=== PATIENT | female | born 1990 | race Hispanic/Latino ===

== ENCOUNTER 2022-07-11 15:54 | Emergency (ER) | payer OTHER, SELFPAY ==
[2022-07-11 16:05] VITALS: BP 104/48; PULSE 84; RESP 14; TEMP 37.1; O2SAT 99
--- NOTE | 2022-07-11 16:48 | ED.URI ---
HPI - URI/Sore Throat General Chief Complaint: Upper Respiratory Infection Stated Complaint: cough Time Seen by Provider: 07/11/22 16:12 Source: patient Mode of arrival: ambulatory Limitations: no limitations History of Present Illness HPI Narrative: Patient is a 32-year-old female that presents with cough and congestion since Friday. Patient denies taking anything other than Tylenol and Motrin due to recent diagnosis of tachycardia. Denies any fever, chills, ear pain, shortness of breath. Presents with daughter having similar symptoms. Related Data Home Medications Medication Instructions Recorded Confirmed aspirin 81 mg tablet,delayed 81 mg PO DAILY 07/11/22 07/11/22 release diltiazem HCl 120 mg 120 mg PO DAILY 07/11/22 07/11/22 capsule,extended release 24 hr, controlled (DILT-XR) etonogestrel 68 mg subdermal 1 implant subdermal ONCE 07/11/22 07/11/22 implant (Nexplanon) magnesium oxide 400 mg (241.3 mg 400 mg PO DAILY 07/11/22 07/11/22 magnesium) tablet metoprolol succinate 50 mg 50 mg PO DAILY 07/11/22 07/11/22 tablet,extended release 24 hr Allergies Allergy/AdvReac Type Severity Reaction Status Date / Time No Known Allergies Allergy Verified 07/11/22 16:02 Review of Systems Review of Systems: All systems reviewed & are unremarkable except as noted in HPI and below Constitutional: Constitutional: Denies body ache(s), Denies fever(s), Denies headache(s), Denies malaise and Denies weakness Eyes: Eyes: Denies loss of vision ENT: Denies otalgia, Denies headache(s), Reports nasal congestion, Denies sinus pain and Denies sore throat Cardiovascular: Cardiovascular: Denies chest pain, Denies irregular heart rhythm and Denies dyspnea Respiratory: Respiratory: Reports cough and Denies dyspnea Gastrointestinal: Gastrointestinal: Denies abdominal pain, Denies melena, Denies hematochezia, Denies diarrhea, Denies nausea and Denies vomiting Musculoskeletal: Musculoskeletal: Denies back pain, Denies myalgias and Denies arthralgias Integumentary/Breasts: Skin/Breast: Denies pruritus and Denies rash Neurologic: Denies headache(s), Denies loss of vision and Denies weakness Psychiatric: Psychiatric: Reports no additional psychiatric complaints PMFSH Comments At time of signature, agree with nursing past medical, surgical, social and family history. There is no relevant family history pertinent to the presenting complaint. Exam Const: General: cooperative, healthy appearing, comfortable, no acute distress and well nourished Nutritional Appearance: well nourished Orientation/consciousness: patient oriented x3 Limitations: no limitations HENMT: Head: normal to inspection, normocephalic and atraumatic Ears: external ears normal, TM normal on the right and TM abnormal obstructed by cerumen on the left Face/Nose/Sinus: Normal external nose present, normal facial exam, sinuses nontender and face symmetric Face and sinus: normal facial exam, sinuses nontender and face symmetric Mouth: Yes Normal oral and palatal mucosa present, Yes lip normal and Yes moist mucous membranes Teeth and gingiva: dentition normal Throat: posterior oropharynx normal, tonsils normal and uvula midline Eyes: General: appearance normal, both eyes and all related structures Alignment and Position: alignment normal and position normal Periorbital: periorbital findings normal Eyelids: eyelids normal Pupils: Equal, round and reactive pupils present Neck: Neck: normal visual inspection, full ROM and supple Chest: Chest palpation & inspection: normal inspection of the chest and normal palpation of entire chest wall Resp: Effort & Inspection: normal respiratory effort and able to speak in complete sentences Auscultation: clear to auscultation bilaterally, no crackles, no rales, no rhonchi and no wheezes Cardio: Rate: regular rate Rhythm: regular rhythm Heart sounds: S1 normal heart sound present and S2 normal heart sound present
== END 2022-07-11 17:09 | disposition home or self-care (01) ==
PROVIDERS: Emergency Provider Nurse Practitioner Family
DX: J06.9 Acute upper respiratory infection, unspecified (principal)
CPT/HCPCS: 99213; G0463

== ENCOUNTER 2023-07-08 10:50 | Emergency (ER) | payer OTHER, SELFPAY ==
--- NOTE | 2023-07-08 11:04 | ED.URI ---
HPI - URI/Sore Throat General Chief Complaint: Upper Respiratory Infection Stated Complaint: Cough Time Seen by Provider: 07/08/23 11:04 Source: patient Mode of arrival: ambulatory Limitations: no limitations History of Present Illness HPI Narrative: Camille is a 33-year-old female patient presenting to the clinic today with complaints of a cough, runny nose, and sore throat since Friday. She reports no known fever, chills, or body aches. Denies any chest pain or shortness of breath. Reports the cough is keeping her up at night. MD elicited complaint: sore throat and nasal congestion Related Data Allergies Allergy/AdvReac Type Severity Reaction Status Date / Time No Known Allergies Allergy Verified 07/11/22 16:02 Review of Systems Review of Systems: Pertinent positives per HPI. Patient denies any fever, chills, rash, headache, visual changes, dizziness, cough, runny nose, sore throat, shortness of breath, chest pain, palpitations, nausea, vomiting, diarrhea, constipation, abdominal pain, or any urinary issues. PMFSH Comments At the time of my signature, I reviewed and agree with the nursing past medical, surgical, social, and family history. There is no relevant family history pertinent to the patient complaint. Exam Narrative: General: Well-developed, well nourished, in no apparent distress Head: Normocephalic, atraumatic Eyes: Pupils equally round and reactive to light bilaterally, EOM intact, sclera and conjunctive clear, no discharge, lids normal Ears: TMs intact and clear, ear canals clear, no drainage, grossly hearing normal. Nose: Nares patent, clear nasal discharge, no inflammation, no sinus tenderness. Mouth: Oropharynx red without lesions or masses, good dentition, MMM. Postnasal drip Neck: Supple, trachea midline, no enlargement of anterior or posterior cervical nodes, no thyroid masses or goiter palpable. Cardio: Regular rate and rhythm, s1 and s2 normal, no murmur appreciated. Resp: Clear to auscultation bilaterally anteriorly and posteriorly, no rhonchi, rales, wheezing or rubs Course Course Emergency Course: Portions of this record may have been created with voice recognition software. Level of Care: Express Care Visit Vital Signs Vital signs: Vital signs reviewed MDM - URI/Sore Throat MDM Narrative Medical decision making narrative: At the time of visit patient is resting comfortably on the exam table. Patient appears to be nontoxic. Labs: Strep test was obtained and negative in the clinic today Plan: I suspect patient has URI with postnasal drip. Prescription for prednisone was sent to the pharmacy. Supportive measures were discussed with the patient and they voiced understanding discharge instructions and agrees to treatment plan. Return precautions reviewed Differential Diagnosis Differential diagnosis: Likely upper respiratory infection, otitis media, sinusitis, viral infection, bronchitis, influenza, pharyngitis and other (COVID) Discharge Plan Discharge Clinical Impression: PND (post-nasal drip) Upper respiratory infection Qualifiers: URI type: unspecified viral URI Qualified Code(s): J06.9 - Acute upper respiratory infection, unspecified Pharyngitis Qualifiers: Pharyngitis/tonsillitis etiology: unspecified etiology Qualified Code(s): J02.9 - Acute pharyngitis, unspecified Patient Disposition: Home, Self-Care Condition: Stable Instructions: Antibiotic Form, Pharyngitis (ED), Cold Symptoms (ED), Postnasal Drip (DC) Additional Instructions: La prueba de estreptococos nilo negativa hoy en la cl?edda. Enviaremos por cultura. Si el cultivo resulta positivo, nos comunicaremos con usted para administrarle antibi?ticos en kajal momento. [place] los medicamentos recetados s?lo seg?n lo prescrito: prednisona [place] los l?quidos y mant?ngase lobo hidratado. Tylenol/motrin para el dolor/fiebre Flonase y antihistam?nicos de venta boaz seg?n las indicaciones
[2023-07-08 11:13] VITALS: BP 105/72; PULSE 92; RESP 16; TEMP 36.8; O2SAT 99
== END 2023-07-08 11:58 | disposition home or self-care (01) ==
PROVIDERS: Emergency Provider Nurse Practitioner Family; PCP Registered Nurse
DX: R09.82 Postnasal drip (principal); J06.9 Acute upper respiratory infection, unspecified; J02.9 Acute pharyngitis, unspecified
CPT/HCPCS: 87081; 87880; 99213; G0463

== ENCOUNTER 2023-07-16 18:28 | Emergency (ER) | payer OTHER, SELFPAY ==
[2023-07-16 18:41] VITALS: BP 119/71; PULSE 136; RESP 20; TEMP 38; O2SAT 100
--- NOTE | 2023-07-16 18:58 | ED.URI ---
HPI - URI/Sore Throat General Chief Complaint: Upper Respiratory Infection Stated Complaint: Sinus Time Seen by Provider: 07/16/23 18:42 Source: patient and interpreter translator Mode of arrival: ambulatory Limitations: no limitations History of Present Illness HPI Narrative: Patient presents today complaining of headache, fever up to 100.8, body aches, weakness, sore throat, cough. Symptoms began last night. She vomited once last night and 3 times so far today. Denies shortness of breath, chest pain, abdominal pain, diarrhea. She currently rates her headache 10/10 and has been taking Tylenol with some relief. She has been able to keep down small amounts of fluid in between vomiting episodes. Patient states she needs a work note to be excused. Related Data Home Medications Medication Instructions Recorded Confirmed diltiazem HCl 120 mg 120 mg PO DAILY 07/16/23 07/16/23 capsule,extended release 24 hr, controlled metoprolol succinate 50 mg 50 mg PO DAILY 07/16/23 07/16/23 tablet,extended release 24 hr Allergies Allergy/AdvReac Type Severity Reaction Status Date / Time No Known Allergies Allergy Verified 07/16/23 18:34 Review of Systems Review of Systems: CONSTITUTIONAL: + body aches, fever, weakness EYES: Denies visual changes, redness, or discharge. ENT: Denies rhinorrhea, congestion, or otalgia.+ sore throat CARDIOVASCULAR: Denies chest pain, palpitations, or edema. RESPIRATORY: Denies cough or dyspnea. GASTROINTESTINAL: Denies abdominal pain, or diarrhea.+ nausea, vomiting GENITOURINARY: Denies dysuria or hematuria. SKIN: Denies rash, itching, or wounds. MUSCULOSKELETAL: Denies back pain, joint pain, or myalgia. NEUROLOGIC: Denies numbness, tingling, or weakness.+ headache PSYCH: Denies depression or anxiety. PMFSH Comments At time of signature, I have reviewed and agree with nursing past medical, surgical, social and family history unless otherwise noted. Please see nursing chart for further information. There is no relevant family history pertinent to the presenting complaint Exam Narrative: GENERAL: Mildly ill-appearing, well-nourished, and in no acute distress. HEAD: Normocephalic, atraumatic. EYES: EOMI. No redness or drainage. Conjunctivae normal. ENT: Mucous membranes pink and moist. Nares clear. No rhinorrhea. TMs normal bilaterally. Throat erythematous and mildly edematous without exudate. Uvula midline. NECK: Normal AROM. Supple. No lymphadenopathy. CHEST: No respiratory distress. Clear to auscultation. HEART: Regular rate and rhythm. No murmur appreciated. ABDOMEN: Soft, nontender, nondistended, normal active bowel sounds. EXTREMITIES: Normal range of motion. No edema. SKIN: Warm, dry, no rash. Capillary refill normal. Normal skin turgor. NEURO: No focal deficits. Alert and oriented x3. Gait steady. PSYCH: Normal affect. No signs of depression or anxiety. Course Course Level of Care: Express Care Visit Vital Signs Vital signs: Vital Signs Temperature 100.4 F H 07/16/23 18:41 Pulse Rate 136 H 07/16/23 18:41 Respiratory Rate 20 07/16/23 18:41 Blood Pressure 119/71 07/16/23 18:41 Pulse Oximetry 100 07/16/23 18:41 Oxygen Delivery Room Air 07/16/23 18:41 Temperature 100.4 F H 07/16/23 18:41 Pulse Rate 136 H 07/16/23 18:41 Respiratory Rate 20 07/16/23 18:41 Blood Pressure 119/71 07/16/23 18:41 Pulse Oximetry 100 07/16/23 18:41 Oxygen Delivery Room Air 07/16/23 18:41 Reviewed MDM - URI/Sore Throat MDM Narrative Medical decision making narrative: Influenza B positive. Patient would like prescription for Tamiflu. Discussed common side effect of nausea. Prescription for Zofran also given. Work note given. Anticipatory guidance given. Differential Diagnosis Differential diagnosis: Likely upper respiratory infection, viral infection, influenza and other (Strep throat, COVID-19, viral syndrome) Lab Data Attestation: I revie
[2023-07-16] MEDS: ONDANSETRON HCL ODT 4 MG TABLET 8 MG SUBLINGUAL (19:10)
[2023-07-16 19:11] VITALS: TEMP 38
[2023-07-16] MEDS: ACETAMINOPHEN 500 MG TABLET 1000 MG PO (19:11)
[2023-07-16 19:20] VITALS: TEMP 37.2
== END 2023-07-16 19:30 | disposition home or self-care (01) ==
PROVIDERS: Emergency Provider Nurse Practitioner; PCP Physician Assistant
DX: J10.1 Influenza due to other identified influenza virus with other respiratory manifestations (principal); Z20.822 Contact with and (suspected) exposure to COVID-19; I10 Essential (primary) hypertension
CPT/HCPCS: 87081; 87426; 87804; 87880; 99213; A9270; G0463

== ENCOUNTER 2024-04-02 14:19 | Emergency (ER) | payer SELFPAY ==
[2024-04-02 14:38] VITALS: BP 112/70; PULSE 90; RESP 16; TEMP 36.4; O2SAT 99
--- NOTE | 2024-04-02 14:45 | ED_ITS ---
HPI - URI/Sore Throat General Chief Complaint: Upper Respiratory Infection Stated Complaint: cough/head pain Source: patient, RN notes reviewed and old records reviewed Mode of arrival: ambulatory Limitations: no limitations History of Present Illness HPI Narrative: Patient presents with 3 day history of cough. She denies any fever, chills, sweats. She does report some urinary incontinence secondary to cough since becoming sick. She is not in any distress, including respiratory distress. Has not been taken any medications for her symptoms. Reports she is having difficulty sleeping secondary to cough Related Data Home Medications ?Medication ?Instructions ?Recorded ?Confirmed ?Last Taken ?Type diltiazem HCl 120 mg 120 mg PO DAILY 07/16/23 07/16/23 Unknown History capsule,extended release 24 hr, controlled metoprolol succinate 50 mg 50 mg PO DAILY 07/16/23 07/16/23 Unknown History tablet,extended release 24 hr Allergies Allergy/AdvReac Type Severity Reaction Status Date / Time No Known Allergies Allergy Verified 04/02/24 14:33 Review of Systems Review of Systems: All systems reviewed & are unremarkable except as noted in HPI and below Constitutional: Constitutional: Reports no additional constitutional complaints ENT: Reports system reviewed and no additional complaints, except as documented Cardiovascular: Cardiovascular: Reports no additional cardiovascular complaints Respiratory: Respiratory: Reports no additional respiratory complaints and Reports cough Gastrointestinal: Gastrointestinal: Reports no additional gastrointestinal complaints Genitourinary: Genitourinary: Reports urinary incontinence (Only with cough) PMFSH Comments At the time of my signature, I reviewed and agree with the nursing past medical, surgical, social, and family history. There is no relevant family history pertinent to the patient complaint. Exam Const: General: cooperative, no acute distress, alert and awake Orientatio n/consciousness: oriented to person, oriented to place and oriented to time HENMT: Head: normal to inspection Resp: Effort & Inspection: normal respiratory effort and able to speak in complete sentences Auscultation: clear to auscultation bilaterally, no crackles, no rales, no rhonchi and no wheezes Cardio: Palpation: normal PMI Rate: regular rate Rhythm: regular rhythm Heart sounds: S1 normal heart sound present and S2 normal heart sound present Neuro: General: oriented to person, oriented to place and oriented to time Cranial nerves: Yes CN's II-XII intact bilaterally Psych: Appearance: grossly normal Thought process: Normal thought process present Insight: Good insight present (Psych) Judgement: Good judgement present (Psych) Course Course Level of Care: Express Care Visit Vital Signs Vital signs: Vital Signs Temperature 97.6 F 04/02/24 14:38 Pulse Rate 90 04/02/24 14:38 Respiratory Rate 16 04/02/24 14:38 Blood Pressure 112/70 04/02/24 14:38 Pulse Oximetry 99 04/02/24 14:38 Oxygen Delivery Room Air 04/02/24 14:38 Temperature 97.6 F 04/02/24 14:38 Pulse Rate 90 04/02/24 14:38 Respiratory Rate 16 04/02/24 14:38 Blood Pressure 112/70 04/02/24 14:38 Pulse Oximetry 99 04/02/24 14:38 Oxygen Delivery Room Air 04/02/24 14:38 Reviewed MDM - URI/Sore Throat MDM Narrative Medical decision making narrative: Reassuring physical exam. Treat symptomatically. Patient nontoxic appearing, stable for discharge home. Discharge instructions reviewed with patient, as well as provided in writing per nursing staff. The instructions also include specific and strict return/GO TO THE ER as well as f/u information. All questions have been answered, and the patient deny any further questions with discharge and discharge plan. Some parts of this dictation were generated by voice recognition software and may contain typographical and/or grammatical inaccuracies. Differential Diagnosis Differential diagnosis: Likely upper respiratory infection, croup, otitis media, sinusitis and viral infection Medical Records Attestation: I reviewed the patient's medical records. Discharge Plan Discharge Clinical Impression: Upper respiratory infection Qualifiers: URI type: unspecified viral URI Qualified Code(s): J06.9 - Acute upper respiratory infection, unspecified Patient Disposition: Home, Self-Care Condition: Stable Instructions: Antibiotic Form Additional Instructions: take medication as prescribed, follow with primary care provider, emergency dept for new or worse symptoms Patient Language: Syriac Prescriptions: New prednisone 50 mg tablet 50 mg PO DAILY Qty: 5 0RF No Action metoprolol succinate 50 mg tablet extended release 24 hr 50 mg PO DAILY diltiazem HCl 120 mg capsule,ext.rel 24h degradable 120 mg PO DAILY Follow-up/Referrals: UNKNOWN,DOCTOR [Primary Care Provider] - Time of Disposition: 15:38
== END 2024-04-02 16:00 | disposition home or self-care (01) ==
PROVIDERS: Emergency Provider Nurse Practitioner Family
DX: J06.9 Acute upper respiratory infection, unspecified (principal)
CPT/HCPCS: 99213; G0463

== ENCOUNTER 2024-05-11 18:37 | Emergency (ER) | payer SELFPAY ==
--- NOTE | 2024-05-11 18:47 | ED.URI ---
HPI - URI/Sore Throat General Chief Complaint: Upper Respiratory Infection Stated Complaint: Fatigue/Cough Time Seen by Provider: 05/11/24 18:47 Source: patient Mode of arrival: ambulatory Limitations: no limitations History of Present Illness HPI Narrative: Camille is a 33-year-old female patient presenting to the clinic today with complaints of fatigue, fever, and cough x3 days. She reports she is needing a work note. She denies any shortness of breath or chest pain. Related Data Home Medications ?Medication ?Instructions ?Recorded ?Confirmed ?Last Taken ?Type No Home Medications 05/11/24 05/11/24 Unknown History Allergies Allergy/AdvReac Type Severity Reaction Status Date / Time No Known Allergies Allergy Verified 05/11/24 18:42 Review of Systems Review of Systems: Pertinent positives per HPI. Patient denies any fever, chills, rash, headache, visual changes, dizziness, shortness of breath, chest pain, palpitations, nausea, vomiting, diarrhea, constipation, abdominal pain, or any urinary issues. PMFSH Comments At the time of my signature, I reviewed and agree with the nursing past medical, surgical, social, and family history. There is no relevant family history pertinent to the patient complaint. Exam Narrative: General: Well-developed, well nourished, in no apparent distress Head: Normocephalic, atraumatic Eyes: Pupils equally round and reactive to light bilaterally, EOM intact, sclera and conjunctive clear, no discharge, lids normal Ears: TMs intact and clear, ear canals clear, no drainage, grossly hearing normal. Nose: Nares patent, clear nasal discharge, no inflammation, no sinus tenderness. Mouth: Oral pharynx without lesions or masses, good dentition, MMM. Neck: Supple, trachea midline, no enlargement of anterior or posterior cervical nodes, no thyroid masses or goiter palpable. Cardio: Regular rate and rhythm, s1 and s2 normal, no murmur appreciated. Resp: Clear to auscultation bilaterally, no rhonchi, rales, wheezing or rubs Course Course Emergency Course: Portions of this record may have been created with voice recognition software. Level of Care: Express Care Visit Vital Signs Vital signs: Vital Signs Temperature 37.7 C H 05/11/24 18:56 Pulse Rate 117 H 05/11/24 18:56 Respiratory Rate 16 05/11/24 18:56 Blood Pressure 107/70 05/11/24 18:56 Pulse Oximetry 99 05/11/24 18:56 Oxygen Delivery Room Air 05/11/24 18:56 Temperature 37.7 C H 05/11/24 18:56 Pulse Rate 117 H 05/11/24 18:56 Respiratory Rate 16 05/11/24 18:56 Blood Pressure 107/70 05/11/24 18:56 Pulse Oximetry 99 05/11/24 18:56 Oxygen Delivery Room Air 05/11/24 18:56 Vital signs reviewed MDM - URI/Sore Throat MDM Narrative Medical decision making narrative: At the time of visit patient is resting comfortably on the exam table. Patient appears to be nontoxic. Labs: Influenza testing is positive for influenza A. Plan: Patient has influenza A. Is at a window for Tamiflu. Supportive measures were discussed with the patient and they voiced understanding discharge instructions and agrees to treatment plan. Return precautions reviewed Differential Diagnosis Differential diagnosis: Likely upper respiratory infection, otitis media, sinusitis, viral infection, bronchitis, influenza, pharyngitis and other (COVID) Lab Data Labs: Lab Results 05/11/24 Range/Units 19:06 POC Influenza A Ag Positive (Negative) POC Influenza B Ag Negative (Negative) Discharge Plan Discharge Clinical Impression: Influenza A Patient Disposition: Home, Self-Care Condition: Stable Instructions: Antibiotic Form, Influenza (ED) Additional Instructions: Influenza A test is positive in the clinic today May take DayQuil/NyQuil for cold/flu symptoms Increase fluids and stay well hydrated Tylenol/motrin for pain/fever Flonase and OTC antihistamines as directed Vicks vapor rub to open sinuses Sinus rinses for congestion Cepacol spray, cough drops, throat lozenges, warm tea with honey/lemon, gargle salt water to soothe throat BRAT diet for diarrhea Clear liquids x 24 hours then advance as tolerated for nausea/vomiting Go to the ED if you develop a worsening in your condition- high fever not controlled by Tylenol or Motrin, dehydration, weakness, lethargy, shortness of breath, or chest pain. Follow up with your PCP in 3-5 days if symptoms persist. Patient Language: Uzbek Prescriptions: No Action No Home Medications Follow-up/Referrals: Bang,LESLIE Giraldo [Primary Care Provider] - Stand Alone Forms: Work/School Release IP Time of Disposition: 19:07 Quality NIHSS Nursing Documentation ED NIHSS nursing documentation: reviewed/agree
[2024-05-11 18:56] VITALS: BP 107/70; PULSE 117; RESP 16; TEMP 37.7; O2SAT 99
[2024-05-11 19:08] LABS: EDINFLUASCREEN Positive (Negative); EDINFLUBSCREEN Negative (Negative)
== END 2024-05-11 19:15 | disposition home or self-care (01) ==
PROVIDERS: Emergency Provider Nurse Practitioner Family; PCP Registered Nurse
DX: J10.1 Influenza due to other identified influenza virus with other respiratory manifestations (principal); I10 Essential (primary) hypertension
CPT/HCPCS: 87804; 99212; G0463